=== PATIENT | female | born 1995 | race Hispanic/Latino ===

== ENCOUNTER 2021-12-15 14:26 | Inpatient (IN) | payer MEDICAID, OTHER ==
[~2021-12-15] VITALS: Ht 152.4 cm; Wt 69.4 kg
[2021-12-15] MEDS ORDERED: OXYTOCIN-LR 20 UNITS/1000 ML 2,000 ML IV ONE (15:21)
[2021-12-15] MEDS ORDERED: PORACTANT ALFA 240 MG/3 ML VIAL IH ONE (15:27)
[2021-12-15 15:57] LABS: HEMATOCRIT 33.2 % (36-48); MEAN CORPUSCULAR HEMOGLOBIN 27.6 pg (27.0-33.0); MEAN CORPUSCULAR HGB CONC 31.9 g/dL (32.0-36.0); MEAN CORPUSCULAR VOLUME 86.5 fL (79-99); RED BLOOD CELL COUNT(AUTO) 3.84 MIL/uL (4.00-5.50); RED CELL DISTRIBUTION WIDTH 12.6 % (11.0-15.5); WHITE BLOOD COUNT (AUTO) 9.7 K/uL (4.8-10.8)
[2021-12-15] MEDS ORDERED: OXYTOCIN-LR 20 UNITS/1000 ML 1,000 ML IV SCH (16:00)
[2021-12-15] MEDS ORDERED: WITCH HAZEL 1 PAD TP PRN (16:00)
[2021-12-15] MEDS ORDERED: ACETAMINOPHEN 325 MG TAB PO PRN (16:00)
[2021-12-15] MEDS ORDERED: ACETAMINOPHEN WITH CODEINE 1 TAB TAB PO PRN (16:00)
[2021-12-15] MEDS ORDERED: LACTATED RINGERS 1000ML 1,000 ML IV PRN (16:00)
[2021-12-15] MEDS ORDERED: BENZOCAINE/LANOLIN/ALOE VERA 60 ML AEROSOL TP PRN (16:00)
[2021-12-15] MEDS ORDERED: LANOLIN 30GM OINTMENT TP PRN (16:00)
[2021-12-15 16:03] LABS: APPEARANCE,URINE Cloudy (CLEAR); BILIRUBIN,URINE Small (NEGATIVE); COLOR,URINE Dark Yellow (YELLOW); GLUCOSE, URINE (UA) Negative (NEGATIVE); KETONES,URINE Negative (NEGATIVE); LEUKOCYTE ESTERASE ,URINE Large (NEGATIVE); NITRATE,URINE Negative (NEGATIVE); OCCULT BLOOD,URINE Negative (NEGATIVE); PH,URINE 6.5 (5.0-8.0); PROTEIN,URINE Trace mg/dL (NEGATIVE)
[2021-12-15 16:08] VITALS: BP 121/75
[2021-12-15] MEDS: IBUPROFEN 600 MG TABLET PO PRN (16:08)
[2021-12-15 16:10] LABS: AMPHET/METH SCREEN,URINE NEGATIVE (NEGATIVE); BARBITURATE SCREEN, URINE NEGATIVE (NEGATIVE); BENZODIAZEPINES SCREEN,URINE NEGATIVE (NEGATIVE); CANNABINOID SCREEN,URINE POSITIVE (NEGATIVE); COCAINE SCREEN,URINE NEGATIVE (NEGATIVE); OPIATE SCREEN,URINE NEGATIVE (NEGATIVE); PHENCYCLIDINE SCREEN,URINE NEGATIVE (NEGATIVE)
[2021-12-15] MEDS: OXYTOCIN-LR 20 UNITS/1000 ML 1,000 ML IV SCH ×2 (16:32→16:53)
[2021-12-15 17:21] LABS: BACTERIA,URINE Few /HPF (None Seen); MUCUS,URINE Few LPF (None Seen); SQUAMOUS EPITHELIAL CELL,UR Moderate /HPF (0-2)
[2021-12-15] MEDS ORDERED: PNV11TAB5 PO (18:23)
[2021-12-15] MEDS ORDERED: MEASLES/MUMPS/RUBELLA VACCINE, LIVE 0.5 ML/VIAL SQ PRN (18:30)
[2021-12-15] MEDS ORDERED: DIPH,PERTUSS(ACELL),TET VAC/PF 0.5 ML VIAL IM PRN (18:30)
[2021-12-15 19:10] VITALS: BP 113/72
[2021-12-15] MEDS: DOCUSATE SODIUM 100 MG CAP PO SCH (19:36)
[2021-12-15 23:00] VITALS: BP 116/80
[2021-12-16 03:42] VITALS: BP 117/76
[2021-12-16 06:26] LABS: HEMATOCRIT 30.6 % (36-48); MEAN CORPUSCULAR HEMOGLOBIN 28.4 pg (27.0-33.0); MEAN CORPUSCULAR HGB CONC 32.4 g/dL (32.0-36.0); MEAN CORPUSCULAR VOLUME 87.7 fL (79-99); RED BLOOD CELL COUNT(AUTO) 3.49 MIL/uL (4.00-5.50); RED CELL DISTRIBUTION WIDTH 12.9 % (11.0-15.5); WHITE BLOOD COUNT (AUTO) 10.7 K/uL (4.8-10.8)
[2021-12-16 07:05] VITALS: BP 125/75
[2021-12-16] MEDS: DOCUSATE SODIUM 100 MG CAP PO SCH ×2 (08:12→22:54)
[2021-12-16] MEDS: IBUPROFEN 600 MG TABLET PO PRN ×2 (08:13→22:57)
[2021-12-16 10:00] LABS: RAPID PLASMA REAGIN NONREACTIVE (NONREACTIVE)
[2021-12-16 11:30] VITALS: BP 115/72
[2021-12-16 16:59] VITALS: BP 127/84
[2021-12-16 20:04] VITALS: BP 128/81
[2021-12-16 23:07] VITALS: BP 119/75
[2021-12-17 03:25] VITALS: BP 114/69
[2021-12-17 07:40] VITALS: BP 129/78
[2021-12-17] MEDS: IBUPROFEN 600 MG TABLET PO PRN (08:41)
[2021-12-17] MEDS: DOCUSATE SODIUM 100 MG CAP PO SCH (08:41)
[2021-12-17 11:10] VITALS: BP 119/77
== END 2021-12-17 16:20 | disposition home or self-care (01) | DRG 807 ==
LOC: EDH 14:26 → OBSVTOIN 14:49 → LDH 14:49 → WSH 19:19
PROVIDERS: ADMIT Obstetrics & Gynecology; ATTEND Obstetrics & Gynecology
PROC: 10E0XZZ Delivery of Products of Conception, External Approach (ICD-10-PCS; principal; 2021-12-15)
PROC: 3E0234Z Introduction of Serum, Toxoid and Vaccine into Muscle, Percutaneous Approach (ICD-10-PCS; 2021-12-15)
DX: O60.14X0 Preterm labor third trimester with preterm delivery third trimester, not applicable or unspecified (principal); Z37.0 Single live birth; O77.0 Labor and delivery complicated by meconium in amniotic fluid; Z3A.34 34 weeks gestation of pregnancy; Z23 Encounter for immunization
CPT/HCPCS: 36415; 80305; 81001; 85027; 86592; 86701; 86850; 86900; 86901; 87088; 87340; 87390; 90715; G0378; J2590